=== PATIENT | male | born 1980 | race Two or more races ===

== ENCOUNTER 2021-09-23 09:54 | Emergency (ER) | payer MEDICAID, OTHER ==
[~2021-09-23] VITALS: Ht 172.7 cm; Wt 106.6 kg
[2021-09-23] MEDS ORDERED: HYDROcodone-ACET 5/325MG TAB PO ONE (10:30)
[2021-09-23] MEDS ORDERED: MORPHINE SULFATE INJ 2 MG/ml SYRG IM ONE (12:30)
[2021-09-23] MEDS ORDERED: ONDANSETRON ODT 4 MG TAB PO ONE (12:30)
[2021-09-23 12:45] VITALS: BP 143/78
[2021-09-23] MEDS ORDERED: CYCL-837 PO (12:45)
[2021-09-23] MEDS ORDERED: ACE3T PO (13:31)
== END 2021-09-23 14:01 | disposition home or self-care (01) ==
LOC: EDBD 09:54 → ER 09:54
DX: S39.012A Strain of muscle, fascia and tendon of lower back, initial encounter (principal); M46.96 Unspecified inflammatory spondylopathy, lumbar region; F17.210 Nicotine dependence, cigarettes, uncomplicated; X58.XXXA Exposure to other specified factors, initial encounter; Y93.89 Activity, other specified; Y92.89 Other specified places as the place of occurrence of the external cause; Y99.8 Other external cause status
CPT/HCPCS: 72100; 96372; 99283; J2270; Q0162

== ENCOUNTER 2024-09-28 12:04 | Emergency (ER) | payer OTHER, MEDICAID ==
[~2024-09-28] VITALS: Ht 172.7 cm; Wt 101.6 kg
[~2024-09-28 12:04] MED LIST: ACE3T PO; CYCL-837 PO
--- NOTE | 2024-09-28 13:16 | DVH ---
CHEST RADIOGRAPH Indication: inhailation Technique: Frontal and lateral view of the chest was obtained Comparison: None FINDINGS: Lines and Tubes: None Lungs: Clear Pleura: No effusion. No pneumothorax. Cardiomediastinal contours: Unremarkable Bones: Unremarkable IMPRESSION: No evidence of acute disease.
[2024-09-28 13:40] LABS: Alkaline Phosphatase 71 U/L (46-116); Anion Gap 9 (5-15); Aspartate Aminotransferase 30 U/L (13-40); BUN/Creatinine Ratio 9.3 (10.0-20.0); Bilirubin, Total 0.5 mg/dL (0.2-1.0); Blood Urea Nitrogen 10 mg/dL (9-23); Carbon Dioxide 26 mmol/L (20-31); Glucose 83 mg/dL (74-106); Potassium 4.5 mmol/L (3.5-5.1); Sodium 143 mmol/L (136-145); Total Protein 7.6 g/dL (5.7-8.2)
[2024-09-28 13:43] LABS: Alanine Aminotransferase 40 U/L (7-40); Albumin 4.8 g/dL (3.2-4.8); Calcium 10.4 mg/dL (8.7-10.4); Chloride 108 mmol/L (98-107)
--- NOTE | 2024-09-28 14:04 | ED.PDOC ---
SOB-HPI HPI Comments 44-year-old male with no past medical history presents to the emergency department with a chief complaint of chlorine inhalation onset today (09/28/24) around 09:00. Patient was at work, he was adding chlorine tablets to water, inhaled, shortly after began experiencing cough with shortness of breath that is now resolved. Patient is only experiencing slight cough. No other symptoms or modifying factors present at this time. Denies fevers chills night sweats unintentional weight loss Denies persistent chest pain, shortness of breath, leg swelling Denies history of asthma nor any breathing conditions Denies history of pneumonia Denies recent international travel Chief Complaint: Inhalation Time Seen by MD: 13:50 Primary Care Provider: DENIES Reviewed notes: Medications, Allergies Information Source: Patient Mode of Arrival: Ambulatory Severity: Moderate Timing: Hours Duration: Since onset Context: At Rest, Contact Exposure PE Risk Factors: None History of: None Prehospital treatment: None Modifying Factors: Nothing Associated Signs and Symptoms: Cough Past Medical History PAST MEDICAL HISTORY: Denies Surgical History: Denies all surgeries Family History Family History: Unknown Social History Smoker: Cigarettes, Less Than 1 Pack/Day Alcohol: Denies ETOH Use Drugs: Denies Drug Use Lives In: Home All Other Systems: Reviewed and Negative (as per HPI) Physical Exam General Appearance: No Apparent Distress, Normal HEENT: Normal ENT Inspection, Pharynx Normal, TMs Normal Neck: Full Range of Motion, Non-Tender, Normal, Normal Inspection Respiratory: Chest Non-Tender, Lungs Clear, No Accessory Muscle Use, No Respiratory Distress, Normal Breath Sounds Cardiovascular: No Edema, No JVD, No Murmur, No Gallop, Normal Peripheral Pulses, Regular Rate/Rhythm Breast Exam: Deferred Gastrointestinal: No Organomegaly, Non Tender, No Pulsatile Mass, Normal Bowel Sounds, Soft Genitalia: Deferred Pelvic: Deferred Rectal: Deferred Extremities: No calf tenderness, Normal capillary refill, Normal inspection, Normal range of motion, Non-tender, No pedal edema Musculoskeletal : Apperance: Normal Neurologic: Alert, physician representative II-XII nml as Tested, No Motor Deficits, Normal Affect, Normal Mood, No Sensory Deficits Cerebellar Function: Normal Reflexes: Normal Skin: Dry, Normal Color, Warm Lymphatic: No Adenopathy Was a procedure done? Was a procedure done?: No X-Ray, Labs, Meds, VS Vital Signs Date Time Temp Pulse Resp B/P (MAP) Pulse Ox O2 Delivery O2 Flow Rate FiO2 09/28/24 12:44 98.1 79 17 117/81 (93) 97 98.1 09/28/24 12:44 17 97 Room Air* 0 21 Lab Test 09/28/24 13:07 Range/Units Sodium Level 143 136-145 mmol/L Potassium Level 4.5 3.5-5.1 mmol/L Chloride Level 108 H 98-107 mmol/L Carbon Dioxide Level 26 20-31 mmol/L Anion Gap 9 5-15 Blood Urea Nitrogen 10 9-23 mg/dL Creatinine 1.07 0.700-1.30 mg/dL Glomerular Filtration Rate Calc 87 >90 mL/min BUN/Creatinine Ratio 9.3 L 10.0-20.0 Serum Glucose 83 74-106 mg/dL Calcium Level 10.4 8.7-10.4 mg/dL Total Bilirubin 0.5 0.2-1.0 mg/dL Aspartate Amino Transferase (AST) 30 13-40 U/L Alanine Aminotransferase (ALT) 40 7-40 U/L Alkaline Phosphatase 71 46-116 U/L Total Protein 7.6 5.7-8.2 g/dL Albumin 4.8 3.2-4.8 g/dL DIAGNOSTIC IMAGING Diagnostic Imaging Report : [id number] Signed PATIENT: AMERICA WILKINSON ACCT: [id number] UNIT: [id number] : 1980 LOC: ER ROOM / BED: / AGE / SEX: 44 / M ADM STATUS: REG ER SERVICE 1251 ORDERING PHYSICIAN: PETER SORENSEN NP PROCEDURE(s): CXR2 - CHEST TWO VIEWS ROUTINE REASON: inhailation ORDER NUMBER(s): [id number], ACCESSION NUMBER(s): [id number] CHEST RADIOGRAPH Indication: inhailation Technique: Frontal and lateral view of the chest was obtained Comparison: None FINDINGS: Lines and Tubes: None Lungs: Clear Pleura: No effusion. No pneumothorax. Cardiomediastinal contours: Unremarkable Bones: Unremarkable IMPRESSION: No evidence of acute disease. ATED BY: ОЛЕГ YOST MD DICTATED DATE/TIME: 09/28/24 1314 SIGNED BY: ОЛЕГ YOST MD SIGNED DATE/TIME: 09/28/24 1314 CC: X-Ray, Labs, Meds, VS Comment 44-year-old male with no past medical history presents to the emergency department with a chief complaint of chlorine inhalation onset today (09/28/24) around 09:00. Patient arrives alert and oriented, ABC's intact, afebrile, vital signs stable, saturating well in room air Diagnostic imaging ordered by me and results interpreted by radiology : XY CHEST TWO VIEWS ROUTINE Additional MDM Review of External, Non-ED records: External records reviewed. Discussion with independent historian (EMS, family) history obtained from the patient/parents (if applicable) at bedside Chronic conditions affecting care: None Social determinants of health affecting care: cigarettes Consideration of admission (observation or admission): I considered escalation of care to admission for this patient, however given the reassuring workup, the patient is safe for outpatient management. Time of 1ST Reevaluation: 14:20 Reevaluation 1ST: Improved Patient Education/Counseling: Diagnosis, Treatment Family Education/Counseling: No Family Present Departure 1 Departure Time of Disposition: 14:04 Impression: Primary Impression: Chlorine inhalation lung injury Disposition: 01 HOME / SELF CARE / HOMELESS Condition: Stable Critical Care Note Critical Care Time?: No Stability Stability form required: No Heart Score Heart Score: Heart Score Response (Comments) Value History N/A 0 EKG N/A 0 Age N/A 0 Risk Factors N/A 0 Troponin N/A 0 Total 0 I personally scribed for PETER SORENSEN NP ([email or web address]) on 09/28/24 at 14:04. Electronically submitted by Cray Hansen ([email or web address]). I personally scribed for PETER SORENSEN NP ([email or web address]) on 09/28/24 at 14:17. Electronically submitted by Cary Hansen ([email or web address]). PETER SORENSEN NP Sep 28, 2024 14:04
[2024-09-28 14:19] VITALS: BP 122/75; PULSE 79; RESP 20; TEMP 98.9; O2SAT 95
== END 2024-09-28 14:36 | disposition home or self-care (01) ==
LOC: ER 12:04
DX: T17.890A Other foreign object in other parts of respiratory tract causing asphyxiation, initial encounter (principal); F17.210 Nicotine dependence, cigarettes, uncomplicated; Z79.899 Other long term (current) drug therapy
CPT/HCPCS: 36415; 71046; 80053